=== PATIENT | male | born 1970 | race Caucasian/White ===

== ENCOUNTER 2019-07-24 10:21 | Inpatient (IN) | payer OTHER ==
[~2019-07-24] VITALS: Ht 175.3 cm; Wt 77.1 kg
[2019-07-24 10:32] VITALS: BP 118/86
[2019-07-24] MEDS ORDERED: LEXAPRO20 MG PO (10:40)
[2019-07-24] MEDS ORDERED: ABILIFY10 MG PO (10:40)
[2019-07-24 11:14] LABS: HEMATOCRIT 42.9 % (42.0-52.0); HEMOGLOBIN 14.5 gm/dL (14.0-18.0); MCH 32.1 pg (26.0-34.0); MCHC 33.7 g/dL (28.0-37.0); MCV 95.1 fL (80.0-100.0); PLATELET COUNT 231 thou/uL (150-400); RBC 4.51 mil/uL (4.50-6.00); RDW 12.9 % (10.5-14.5); WBC 13.5 thou/uL (4.0-11.0)
[2019-07-24 11:23] LABS: CALCIUM 9.9 mg/dL (8.5-10.1); POTASSIUM 3.5 mmol/L (3.5-5.1)
[2019-07-24 11:29] LABS: ALBUMIN 2.9 g/dL (3.4-5.0); TOTAL BILIRUBIN 1.2 mg/dL (<0.1-1.0); TOTAL PROTEIN 7.5 g/dL (6.4-8.2)
[2019-07-24 11:29] LABS: URINE BLOOD TRACE (Negative); URINE CLARITY CLOUDY; URINE COLOR YELLOW; URINE GLUCOSE-RANDOM* TRACE (Negative); URINE KETONES TRACE (Negative); URINE LEUKOCYTES-REFLEX NEGATIVE (Negative); URINE PROTEIN (DIPSTICK) 2+ (Negative); URINE SPECIFIC GRAVITY 1.025 (1.005-1.035)
[2019-07-24 11:38] LABS: URINE NITRITE-REFLEX POSITIVE (Negative)
[2019-07-24 11:39] LABS: ICTOTEST (BILI CONFIRMATORY) Negative (Negative); URINE BILIRUBIN NEGATIVE (Negative)
[2019-07-24 11:46] LABS: CASTS None Seen /LPF (None Seen); SQUAMOUS 0-3 Few /LPF (0-3)
[2019-07-24 11:47] LABS: AMORPHOUS URATES Many /LPF (None Seen); URINE RBC 0-2 Rare /HPF (0-2); URINE WBC-REFLEX 0-5 Rare /HPF (0-5)
[2019-07-24 12:20] LABS: ABSOLUTE NEUTROPHILS 12.4 thou/uL (1.4-8.2); PLATELET ESTIMATE NORMAL
[2019-07-24 15:14] VITALS: BP 120/77
[2019-07-24 15:26] VITALS: BP 120/77
[2019-07-24 15:47] VITALS: BP 110/75
[2019-07-24] MEDS ORDERED: TRAZODONE 150150 M1 PO (16:21)
--- NOTE | 2019-07-24 18:30 | NUR ---
PT RECEIVED FROM THE ER AT 1540 ALERT AND IN NO ACUTE DISTRESS. CONTINUES TO HAVE DIARRHEA STOOLS AND NOT PASSING FLATUS. BOWEL SOUNDS HYPERACTIVE. MORPHINE GIVEN FOR C/O RUQ PAIN WHICH HELPED BUT DOESN'T LAST PER PT. BRIEF SPELL OF NAUSEA RIGHT AFTER MORPHINE GIVEN. IV FLUIDS INFUSING. TAKING PO CLEAR LIQUIDS WELL.
[2019-07-24 19:30] VITALS: BP 131/88
[2019-07-25 04:21] LABS: ABSOLUTE NEUTROPHILS 7.7 thou/uL (1.4-8.2); BASOPHILS 0.6 % (0.0-2.0); EOSINOPHILS 0.8 % (0.0-3.0); HEMATOCRIT 40.3 % (42.0-52.0); HEMOGLOBIN 13.6 gm/dL (14.0-18.0); LYMPHOCYTES 10.9 % (24.0-44.0); MCH 32.6 pg (26.0-34.0); MCHC 33.9 g/dL (28.0-37.0); MCV 96.3 fL (80.0-100.0); MONOCYTES 10.8 % (1.0-8.0); PLATELET COUNT 229 thou/uL (150-400); POLYS 76.9 % (36.0-66.0); RBC 4.18 mil/uL (4.50-6.00); RDW 13.2 % (10.5-14.5)
[2019-07-25 04:27] VITALS: BP 150/92
[2019-07-25 04:43] LABS: ALBUMIN 2.6 g/dL (3.4-5.0); CALCIUM 8.9 mg/dL (8.5-10.1); CREATININE 0.9 mg/dL (0.7-1.3); MAGNESIUM 2.1 mg/dL (1.8-2.4); POTASSIUM 3.7 mmol/L (3.5-5.1); TOTAL BILIRUBIN 1.1 mg/dL (<0.1-1.0); TOTAL PROTEIN 6.9 g/dL (6.4-8.2)
--- NOTE | 2019-07-25 05:09 | NUR ---
PT HAVING MULTIPLE BOUTS OF DIARRHEA, WITH IT BEING BILE IN COLOR. PAIN AND FEVER MANAGEMENT POC FOR SHIFT. AT 2100 PT TEMP WAS 102.3, RECEIVED ORDERS FOR TYLENOL AND IT DROPPED IT 99.3. AT 0300 PT TEMP UP TO 103, GAVE TYLENOL AGAIN. SPOKE WITH JENNIFER CHOPRA ABOUT PT HEART RATE BEING IN 120'S. NO ORDERS RECEIVED FOR HR. HOURLY ROUNDING. POC FOLLOWED WITH IVF AND IVPB.
[2019-07-25 07:10] VITALS: BP 131/836
[2019-07-25 15:50] VITALS: BP 138/86
--- NOTE | 2019-07-25 18:25 | NUR ---
ASSUMED PATIENT CARE AT 0700. A/0 X4. TEMP 98.7 AT 1720. NO NAUSEA/VOMIT. PAIN MEDS GIVEN NEEDS. UP AD DEBORAH. SOWLY TOWARDS POC GOALS.
[2019-07-25 19:20] VITALS: BP 126/87
[2019-07-26 04:17] VITALS: BP 119/80
[2019-07-26 04:48] LABS: HEMATOCRIT 32.9 % (42.0-52.0); MCHC 33.8 g/dL (28.0-37.0); MCV 94.6 fL (80.0-100.0); RBC 3.48 mil/uL (4.50-6.00); RDW 13.2 % (10.5-14.5); WBC 11.3 thou/uL (4.0-11.0)
[2019-07-26 04:52] LABS: HEMOGLOBIN 11.1 gm/dL (14.0-18.0)
[2019-07-26 05:18] LABS: ALBUMIN 2.1 g/dL (3.4-5.0); CALCIUM 8.5 mg/dL (8.5-10.1); CREATININE 0.7 mg/dL (0.7-1.3); POTASSIUM 3.1 mmol/L (3.5-5.1); TOTAL BILIRUBIN 0.8 mg/dL (<0.1-1.0); TOTAL PROTEIN 5.7 g/dL (6.4-8.2)
--- NOTE | 2019-07-26 06:30 | NUR ---
FOLLOWING POC WITH IVF AND IVPB ANTIBIOTICS. LABS SHOW WBC ELEVATED OVER 07/25, AND K+ IS AT 3.1. PT ALREADY RECEIVING 20 MEQ IN IVF, WILL PASS THIS INFORMATION TO NEXT SHIFT. PT STILL HAVING DIARRHEA, PT STATES IT IS CLEARING. PAIN/NAUSEA CONTROL IN PLACE WITH GOOD RESULTS. PT HAS BEEN FEVER FREE WITH THE ADDED SUPPORT OF TORADOL. VSS AND PT HAS NO OTHER COMPLAINTS.
[2019-07-26 07:28] VITALS: BP 126/93
[2019-07-26 15:24] VITALS: BP 160/112
--- NOTE | 2019-07-26 15:36 | NUR ---
ASSUMED CARE OF PT AT 0700. AOX4. UP AD DEBORAH. COMPLAINS OF GENERALIZED PAIN - SOME RELIEF WITH CURRENT MED REGIMEN. HYPERTENSIVE AT TIMES. CALLS APPROPRIATELY. POTASSIUM SUPPLEMENTED PER ORDER. SR/ST ON TELEMETRY. AFEBRILE THROUGHOUT SHIFT. WILL CONT TO MONITOR.
[2019-07-26 19:30] VITALS: BP 141/98
[2019-07-27 00:20] VITALS: BP 130/98
[2019-07-27 04:20] VITALS: BP 140/99
[2019-07-27 05:00] LABS: ABSOLUTE NEUTROPHILS 9.5 thou/uL (1.4-8.2); BASOPHILS 0.2 % (0.0-2.0); EOSINOPHILS 1.4 % (0.0-3.0); HEMATOCRIT 34.7 % (42.0-52.0); HEMOGLOBIN 11.4 gm/dL (14.0-18.0); MCH 31.5 pg (26.0-34.0); MCV 95.4 fL (80.0-100.0); MONOCYTES 9.2 % (1.0-8.0); PLATELET COUNT 241 thou/uL (150-400); POLYS 78.2 % (36.0-66.0); RBC 3.64 mil/uL (4.50-6.00); RDW 13.1 % (10.5-14.5); WBC 12.1 thou/uL (4.0-11.0)
[2019-07-27 05:21] LABS: ALBUMIN 2.1 g/dL (3.4-5.0); CALCIUM 8.3 mg/dL (8.5-10.1); CREATININE 0.7 mg/dL (0.7-1.3); POTASSIUM 3.5 mmol/L (3.5-5.1); TOTAL BILIRUBIN 0.9 mg/dL (<0.1-1.0); TOTAL PROTEIN 5.9 g/dL (6.4-8.2)
[2019-07-27 07:55] VITALS: BP 144/102
--- NOTE | 2019-07-27 09:45 | NUR ---
assessment: CM REVIEWED CHART AND MET WITH PT AT THE BEDSIDE. PT WAS ADMITTED WITH DIVERTICULITIS. PT REPORTS HE LIVES IN AN APT AND HAS HIS DAUGHTER SOME OF THE TIME. PT REPORTS HAVING ABOUT 25 STEPS TO ENTER THE APT WITH HANDRAILS ON EACH SIDE. PT REPORTS NO STEPS ONCE INSIDE. PT REPORTS WALKING INDEPENDENTLY. PT REPORTS HE IS [place] WITH ADLS. PT CURRENTLY HAS NO INSURANCE. PT REPORTS HE DOES HAVE A PCP HE SEES DR. ALEXANDER HERNANDEZ HE REPORTS OUT OF [place]. CM DISCUSSED ROLE. PT DOES NOT ANTICIPATE HAVING ANY NEEDS AT DISCHARGE. CM WILL CONTINUE TO FOLLOW TO ASSIST NEEDED.
[2019-07-27 15:32] VITALS: BP 142/93
--- NOTE | 2019-07-27 18:00 | NUR ---
PT REPORTS RLQ ABD PAIN 05/26 AND MEDICATED WITH IV DILAUDID 2MG WITH COMPLETE RELIEF OBTAINED BUT PAIN RETURNS AFTER 2 HOURS...ENCOURAGED AMBULATION IN LOCK...
[2019-07-27 19:42] VITALS: BP 142/100
[2019-07-27 21:20] VITALS: BP 160/104
--- NOTE | 2019-07-27 21:46 | NUR ---
EVENT: PT HAD AN EPISODE OF SVT, ASKED HIM TO BEAR - DOWN WITH SUCCESS AFTER 10 -15 MINUTES OF ALSO HELPING HIM TO COOL DOWN HIS ENVIRONMENT AND PLACE HIM ON 3 LITERS OF OXYGEN. SPOKE WITH SUPERVISOR STOCK RANCH PROVIDER, NO NEW ORDERS RECIEVED. EXPLAINED THAT HE PROBABLY NEEDS INFECTIOUS DISEASE TO CONSULT. NO NEW ORDERS RECIEVED.
[2019-07-28 00:27] VITALS: BP 145/83
--- NOTE | 2019-07-28 03:22 | NUR ---
pt only needed the oxygen for a small amount of time (one hour) after having a high temp and taking iv dilaudid, and having the room too hot (85 degrees on register). careplan reviewed, no concerns voiced by the pt
[2019-07-28 04:20] VITALS: BP 124/85
[2019-07-28 05:12] LABS: HEMATOCRIT 32.7 % (42.0-52.0); MCHC 33.7 g/dL (28.0-37.0); RBC 3.44 mil/uL (4.50-6.00); RDW 13.2 % (10.5-14.5); WBC 16.8 thou/uL (4.0-11.0)
[2019-07-28 05:25] LABS: CALCIUM 8.8 mg/dL (8.5-10.1); CREATININE 0.7 mg/dL (0.7-1.3); MAGNESIUM 1.9 mg/dL (1.8-2.4); POTASSIUM 3.9 mmol/L (3.5-5.1)
[2019-07-28 07:54] VITALS: BP 144/97
[2019-07-28 11:47] VITALS: BP 161/108
[2019-07-28 14:38] LABS: INR 1.2; PROTIME 12.6 Seconds (9.3-11.4)
[2019-07-28 15:37] VITALS: BP 137/86
--- NOTE | 2019-07-28 15:48 | NUR ---
PATIENT WAS EAGER TO GET ANSWERS REGARDING WHAT WAS STILL HAPPENING TO HIS BELLY. ADDITIONALLY, FINDING RELIEF FROM PAIN WAS A PRIORITY GOAL FOR HIM. PT HAD A REPEAT CT SCAN AND WILL GET A LIVER DRAIN LATER. PT WAS UP AND WALKING AROUND THE HALLS MULTIPLE TIMES THROUGHOUT THE DAY.
--- NOTE | 2019-07-28 18:21 | NUR ---
ASSUMED PATIENT CARE AT 0700. A/O X3. PAIN MEDS GIVEN NEED. WILL NPO AFTER MIDNIGHT TO HAVE LIVER ABSECSS RAJI KEITH. VSS. SLOWLY TOWARDS POC GOALS.
[2019-07-28 19:31] VITALS: BP 133/94
[2019-07-29] VITALS (30 sets, daily range): BP systolic 122–168; BP diastolic 55–128
--- NOTE | 2019-07-29 02:12 | NUR ---
DURING HOURLY ROUNDS AT 0115 NOTICED PT WAS HOT AND TOOK ORAL TEMP. 102.7, ORAL TYLENOL GIVEN WITH A SMALL SIP OF WATER. REASSESSED AT 0210, ORAL TEMP 98.8. WILL CONTINUE TO MONITOR.
[2019-07-29 05:07] LABS: HEMATOCRIT 33.5 % (42.0-52.0); HEMOGLOBIN 11.1 gm/dL (14.0-18.0); MCH 31.8 pg (26.0-34.0); MCHC 33.2 g/dL (28.0-37.0); MCV 95.6 fL (80.0-100.0); RBC 3.5 mil/uL (4.50-6.00); RDW 13.2 % (10.5-14.5); WBC 16.6 thou/uL (4.0-11.0)
[2019-07-29 05:16] LABS: ALBUMIN 2.1 g/dL (3.4-5.0); CALCIUM 8.5 mg/dL (8.5-10.1); CREATININE 0.7 mg/dL (0.7-1.3); MAGNESIUM 2.1 mg/dL (1.8-2.4); PHOSPHORUS 4.8 mg/dL (2.5-4.9); POTASSIUM 4.1 mmol/L (3.5-5.1)
--- NOTE | 2019-07-29 12:08 | NUR ---
ON-GOING ASSESSMENT: CM REVIEWED CHART AND SPOKE WITH ATTENDING. PT IS TO HAVE ABSESS DRAINED AND THEN WAIT ON CULTURES TO DETERMINE PATIENTS ANBX NEEDS. PT WILL LIKELY NEED OUTPATIENT INFUSION ARRANGED BUT DOES NOT HAVE ANY INSURANCE. CM NOTIFIED CM DIRECTOR AND WILL DISCUSS WITH EXCHANGE OPERATOR TO SEE IF WE CAN PROVIDE THIS FOR PATIENT. CM WILL CONTINUE TO FOLLOW TO ASSIST NEEDED.
--- NOTE | 2019-07-29 19:08 | NUR ---
PATIENT HAD LIVER ABSCESS DRAIN BY IR BACK TO UNIT AT 1530. A/0 X4. HAS A LOT OF PAIN. BP AND HR ELEVATE. KETOROLAL 3OMG STAT GIVEN. WILL KEEP MONITOR.
[2019-07-30 04:10] VITALS: BP 130/89
--- NOTE | 2019-07-30 06:15 | NUR ---
PT WAS VERY LETHARGIC AFTER IR DRAIN OF THE ABSCESS. KEPT PT ON 2L NC UNTIL ABOUT 0100. PT WOULD DESAT IN OXYGEN TO MID 80'S. PT NOW HAS GRAVITY DRAIN LOCATED AT 5TH INTERCOSTAL ON RIGHT RIB CAGE. FLUSHED AND LAVISHED AND DRAINED ONLY 2ML AFTER FLUSH. BAG HAS ABOUT 10ML. PT RATING PAIN AT 9 AND SAYS HE IS HAVING HARD TIME BREATHING. REPOSITIONED AND LOWERED HOB TO 35 TO TAKE STRESS OF ASPIRATION SITE. VSS AND NO FEVER OVERNIGHT. FOLLOWING POC WITH IVF/IVPB. NO LABS DRAWN THIS AM TO CHECK WBC'S. WILL PASS INFORMATION TO ONCOMING.
[2019-07-30 07:30] VITALS: BP 139/86
--- NOTE | 2019-07-30 11:48 | NUR ---
Nutrition: Pt seen for early day 6 LOS. Admit: diverticulitis w/ abscess, fever, N/V. Per provider notes, pt w/ intramural abscess, hepatic masses. S/p drainage procedures. Per EMR, PICC line to be placed for shelter IV antibiotics. Pt has been limited to clear liquids, with a few days of NPO all in all for 6 days (07/24 - 07/29), but advanced to a regular diet this AM. Pt denies any issues with transition back to solid food, other than not liking hospital food. Family bringing in outside food to help increase intake. RD educated pt on goal of consuming low fiber diet given diverticulitis to allow time for healing. Discussed foods to avoid, needing to really limit fats/oils, choose enriched grains and well cooked, soft fruits/vegetables. Pt had no further nutrition questions or needs. Low nutrition risk.
--- NOTE | 2019-07-30 15:39 | NUR ---
ON-GOING ASSESSMENT: CM REVIEWED CHART. PT HAS RUQ DRAIN. PT IS ALSO RUNNING A FEVER TODAY. CM SPOKE WITH DR. FARLEY WHO STATES PATIENT WILL NEED IV ANBX AT DISCHARGE AND AWAITING CULTURES AT THIS TIME TO DETERMINE ANBX. CM NOTIFIED OUTPATIENT INFUSION ([facility]) THAT PATIENT IS PATIENT PAY AND WILL NEED OUTPATIENT INFUSION ONCE STABLE TO DISCHARGE AND ANBX IS STILL PENDING PER CULTURES. CM WILL CONTINUE TO FOLLOW TO ASSIST NEEDED.
[2019-07-30 16:24] VITALS: BP 144/96
[2019-07-30 17:38] LABS: HEMOGLOBIN 11.3 gm/dL (14.0-18.0)
--- NOTE | 2019-07-30 18:36 | NUR ---
ASSUMED PATIENT CARE AT 0700. A/O X4. AMBULATED IN HALLWAY. NO DRAIN COME OUT FROM LIVER ABSCESS. ABD DISDENTED. PAIN MEDS GIVEN NEEDS. LOW GRADE TEMP. NOT TOWARDS POC GOALS.
[2019-07-30 19:14] VITALS: BP 182/104
[2019-07-30 20:15] VITALS: BP 140/72
[2019-07-31 00:13] VITALS: BP 109/71
[2019-07-31 03:47] VITALS: BP 106/70
--- NOTE | 2019-07-31 04:18 | NUR ---
Patient making slow progress towards outcome goals. Tachycardic up to 150's when up out of bed and when febrile. Continues to have significant amount of abdominal pain treated with Hydromorphone and Percocet with some relief. IVFluids infusing. Drain patent, output sanguinous, flushed with 10 ml NS every 8 hours.
[2019-07-31 07:08] VITALS: BP 150/112
[2019-07-31 07:14] LABS: HEMATOCRIT 32.9 % (42.0-52.0); HEMOGLOBIN 10.7 gm/dL (14.0-18.0); MCH 31.2 pg (26.0-34.0); MCHC 32.4 g/dL (28.0-37.0); MCV 96.2 fL (80.0-100.0); RBC 3.42 mil/uL (4.50-6.00); RDW 13.4 % (10.5-14.5); WBC 17.7 thou/uL (4.0-11.0)
[2019-07-31 07:26] LABS: ALBUMIN 2.1 g/dL (3.4-5.0); CALCIUM 8.7 mg/dL (8.5-10.1); CREATININE 0.7 mg/dL (0.7-1.3); PHOSPHORUS 3.4 mg/dL (2.5-4.9); POTASSIUM 4.4 mmol/L (3.5-5.1)
[2019-07-31 08:14] VITALS: BP 147/109
--- NOTE | 2019-07-31 11:49 | NUR ---
ON-GOING ASSESSMENT: CM REVIEWED CHART AND SPOKE WITH ATTENDING. PT STATING PATIENT IS NOT DISCHARGING OVER THE WEEKEND AND HAS HAD A FEVER AND ELEVATED WBC. PT MAY NEED ANOTHER DRAIN PLACED. CM WILL FOLLOW UP ON SATURDAY CULTURES ARE STILL PENDING AND PER ID PT WILL NEED OUTPATIENT INFUSION ARRANGED, ANBX IS STILL PENDING DUE TO CULTURES PENDING. CM UPDATED OUTPT INFUSION. CM WILL FOLLOW UP ON SATURDAY.
[2019-07-31 15:24] VITALS: BP 141/95
--- NOTE | 2019-07-31 19:39 | NUR ---
PT ALERT AND ORIENTED X4. UP AD DEBORAH. AMBULATING IN HALLWAY WITH STEADY GAIT. PRN PAIN MEDICATION GIVEN FOR RUQ ABD PAIN. USING I.S. UP TO 1500ML. PT REPORTS HAVING FREQUENT SMALL BM'S.
[2019-07-31 20:10] VITALS: BP 137/92
[2019-08-01 03:55] VITALS: BP 120/76
--- NOTE | 2019-08-01 07:27 | NUR ---
ASSUMED CARE AT 1900. PT REPORTED SKIN DISCOMFORT AT DRAIN SITE; BLISTERS NOTED AROUND THE DRESSING BORDER; PLACED A BORDER FOAM ON LEFT UPPER CORNER AND GAUZE UNDERNEATH THE DRAIN AND STOPCOCK TO PREVENT IRRIATION. VERY LITTLE FLUID OUT THE DRAIN OVERNIGHT. NO NAUSEA; HAD A SMALL FORMED BM IN THE EVENING. DENIED SOB. HR FREQ TACHY 130-150; ANYTIME PT WAS UP MOVING AROUND HIS HR BECAME TACHY, PT STATED IT WAS D/T PAIN. DID NOT HAVE ANY FEVER, AND HR WOULD GO DOWN AFTER RESTING BRIEFLY. HAD PAIN MEDS EVERY 2-3 HOURS, ALTERNATING BEWTEEN ORAL AND IV. NO OTHER CONCERNS, SHIFT REPORT GIVEN AT 0700.
[2019-08-01 07:29] VITALS: BP 129/94
[2019-08-01 15:45] VITALS: BP 150/86
--- NOTE | 2019-08-01 16:30 | NUR ---
Assumed care approx. 0700 this AM. No acute changes. Still working on pain management-pt rating pain in the 8 to 9 range on a 1-10 pain scale. Pt placed on 2LNC this AM for O2 sat of 87%, now back on room air. Drainage bag and tubing intact-10ml NS flushed Q8H; drainage remains sanguineous in color. Pt still up ad talib and walking around the unit to get exercise. Pt seen with Dr. Lizarraga-Possible CT scan Saturday to compare results per Dr. angelo. Will continue to monitor. Pt slowly progressing toward plan of care goals besides pain management at this time.
[2019-08-01 19:47] VITALS: BP 146/96
[2019-08-02 04:46] VITALS: BP 143/70
[2019-08-02 05:28] LABS: ABSOLUTE NEUTROPHILS 12.7 thou/uL (1.4-8.2); BASOPHILS 0.6 % (0.0-2.0); EOSINOPHILS 0.7 % (0.0-3.0); HEMATOCRIT 32.3 % (42.0-52.0); HEMOGLOBIN 10.6 gm/dL (14.0-18.0); LYMPHOCYTES 7.1 % (24.0-44.0); MCH 31.3 pg (26.0-34.0); MCHC 32.8 g/dL (28.0-37.0); MCV 95.3 fL (80.0-100.0); MONOCYTES 4.4 % (1.0-8.0); POLYS 87.2 % (36.0-66.0); RBC 3.39 mil/uL (4.50-6.00); RDW 13.7 % (10.5-14.5); WBC 14.5 thou/uL (4.0-11.0)
--- NOTE | 2019-08-02 05:38 | NUR ---
ASSUMED CARE AT 1900. PT DENIES NAUSEA. REPORTS IT IS PAINFUL TO TAKE DEEP BREATHS D/T DRAIN; O2 SAT AT START OF SHIFT WAS 89%, WITH DEEPER BREATHING [place] TO 94%. HAD PT WEAR 2L O2 NC WHEN HE WAS READY TO GO TO BED TO PREVENT DESATTING WHILE ASLEEP. CONTINUES TO RATE UPPER R QUAD/DRAIN SITE PAIN ABOUT AN 8/10 AND GENERALIZED ABD PAIN ABOUT A 6/10. FLUSHED DRAIN AT START OF SHIFT, HAD 40 ML THIN, SANGINOUS DRAINAGE OUT; FLUSHED DRAIN AGAIN THIS AM. HR STAYED IN THE 100-110 RANGE OVERNIGHT. NO OTHER CONCERNS, WILL CONTINUE TO MONITOR.
[2019-08-02 05:43] LABS: PLATELET COUNT 501 thou/uL (150-400)
[2019-08-02 07:42] VITALS: BP 157/100
[2019-08-02 15:43] VITALS: BP 142/98
--- NOTE | 2019-08-02 18:14 | NUR ---
ASSUMED PATIENT CARE AT 0700. A/O X4. UP AD DEBORAH. AFEBRILE. ONLY 5ML FROM RUQ DRAIN. PROGRESSING TOWARDS POC GOALS.
[2019-08-02 19:45] VITALS: BP 181/110
[2019-08-02 21:36] VITALS: BP 132/75
--- NOTE | 2019-08-02 22:46 | NUR ---
1999 patient's temp was 100.3. Tylenol administered 2039. Temp 98.9 at 2229.
[2019-08-02 23:41] VITALS: BP 131/77
[2019-08-03 04:05] VITALS: BP 132/82
[2019-08-03 07:41] VITALS: BP 126/89
--- NOTE | 2019-08-03 12:54 | NUR ---
ON-GOING ASSESSMENT: PT IS SLOWLY PROGRESSING TOWARDS DISCHARGE GOALS. PT IS AFEBRILE. PT IS HAVING REPEAT CT AND PER FINDINGS DRAIN WILL EITHER BE REMOVED OR REPLACED. CM WLL CONTINUE TO FOLLOW TO ASSIST NEEDED. CM AWAITING ON FINAL RECOMMENDATIONS FOR ANTIBIOTICS THAT PATIENT WILL NEED. CM WILL CONTINUE TO FOLLOW TO ASSIST NEEDED.
[2019-08-03 16:02] VITALS: BP 138/99
--- NOTE | 2019-08-03 17:57 | NUR ---
ASSUMED CARE OF PATIENT AT 0700. VSS. ROOM AIR. PATIENT REQUIRES ROUND THE CLOCK PAIN MEDICATION. LIVER DRAIN WITH MINIMAL TO NO OUTPUT WITH Q8 10ML FLUSHES. CONTINUING TO MONITOR.
[2019-08-03 20:39] VITALS: BP 133/94
[2019-08-04 03:54] VITALS: BP 114/72
--- NOTE | 2019-08-04 04:33 | NUR ---
ASUMED PT CARE AT 1900. VSS. PT A&0X4. PT'S MAIN COMPLAINTS TONIGHT WAS PAIN WHICH HE RATED BETWEEN 8-9. PAIN WAS MANAGED WTH HYDROMORPHONE AND OXYCODONE RESPECTIVELY. PT SLEPT THROUGH THE NIGHT. SILL NO SIGNIFICANT DRAINAGE NOTED IN PT'S DRAIN. 10ML FLUSH TO DRAIN COMPLETED THIS SHIFT. PT IS STABLE, NO FURTHER COMPLAINTS WILL CONTINUE TO MONITOR PER POC.
[2019-08-04 07:39] VITALS: BP 131/95
--- NOTE | 2019-08-04 13:33 | NUR ---
ON-GOING ASSESSMENT: CM REVIEWED CHART AND MET WITH PATIENT AT THE BEDSIDE. PT STILL HAS RIGHT UPPER QUADRANT DRAIN. REPEAT CT SHOWS SLIGHT IMPROVEMENT OF ABSESS. CM SPOKE WITH ATTENDING WHO REPORTS IR MAY WANT TO DRAIN MORE. CM STILL AWAITING TO SEE WHAT OUTPATIENT IV ANBX PATIENT WILL NEED AT DISCHARGE IN ATTEMPTS TO HELP ARRANGE IT FOR PT IN OUR OUTPT INFUSION CLINIC SINCE PATIENT DOES NOT HAVE INSURANCE. CM WILL CONTINUE TO FOLLOW TO ASSIST NEEDED.
[2019-08-04 18:40] LABS: HEMATOCRIT 32.7 % (42.0-52.0); HEMOGLOBIN 10.9 gm/dL (14.0-18.0); MCHC 33.3 g/dL (28.0-37.0); MCV 93.1 fL (80.0-100.0); RBC 3.51 mil/uL (4.50-6.00); WBC 19.7 thou/uL (4.0-11.0)
--- NOTE | 2019-08-04 18:43 | NUR ---
PT ALERT AND ORIENTED TIMES FOUR, VSS, 93%RA. PT C/O PAIN SEVERAL TIMES THIS SHIFT PRN MEDICATIONS GIVEN WITH SOME RELEIF. PT EATS VERY SMALL PORTIONS OF MEALS. PT UP WALKING AROUND THE UNIT WITH STEADY GAIT. DRAIN IN RIGHT SIDE IN PLACE. WILL CONTINUE TO MONITOR.
[2019-08-04 18:49] LABS: CALCIUM 9.4 mg/dL (8.5-10.1); CREATININE 0.9 mg/dL (0.7-1.3); MAGNESIUM 2.2 mg/dL (1.8-2.4); POTASSIUM 3.7 mmol/L (3.5-5.1)
[2019-08-04 19:18] VITALS: BP 110/77
[2019-08-05 03:59] VITALS: BP 107/66
--- NOTE | 2019-08-05 04:58 | NUR ---
PT MAKING PROGRESS TOWARDS GOALS. X2 DOSES OF DILAUDID AND ONE DOSE OF PERCOCET OVERNIGHT FOR ABDOMINAL PAIN. PT GIVEN EXTRA GOWN, REPORTS WAKING UP ONCE AND FEELING LIKE HAD BEEN SWEATING A LITTLE A FEW HOURS AFTER GIVEN PERCOCET.
[2019-08-05 07:34] VITALS: BP 122/75
--- NOTE | 2019-08-05 08:20 | EKG ---
[address] [address] ELECTROCARDIOGRAM REPORT Name: NINOBRIAN Room #: 353-P ADM IN M.R.#: [id number] Admission: 07/24/19 Attend Phys: Sami Merchant MD Discharge: Date of : 70 Report #: [id number] THIS REPORT FOR: //name// [facility] Test Date: 2019-08-04 Test Time: 19:07:44 Pat Name: BRIAN ONEILL Department: Room: 353 P Gender: M Phone Circuit Operator: Cee REILLY : 1970 Requested By: Xochitl Hunt Order Number: [id number] MD: Palmer Gaviria Measurements Intervals [place] Rate: 120 P: 51 AR: 125 QRS: 49 QRSD: 80 T: 21 QT: 341 QTc: 482 Interpretive Statements Sinus tachycardia Baseline wander in lead(s) V2 No previous ECG available for comparison Electronically Signed On 08-05-2019 8:19:58 GRADE CHECKER by Palmer Gaviria [email or web address] <ELECTRONICALLY SIGNED> By: Palmer Gaviria MD 08/05/19818 06 06 Palmer Gaviria MD /TOMASZ
[2019-08-05 08:52] LABS: HEMATOCRIT 30.5 % (42.0-52.0); MCHC 32.7 g/dL (28.0-37.0); MCV 94.8 fL (80.0-100.0); PLATELET COUNT 431 thou/uL (150-400); RBC 3.21 mil/uL (4.50-6.00); WBC 13.9 thou/uL (4.0-11.0)
[2019-08-05 09:50] LABS: PLATELET ESTIMATE NORMAL
--- NOTE | 2019-08-05 11:45 | NUR ---
ON-GOING ASSESSMENT: CM REVIEWED CHART AND SPOKE WITH ATTENDING WHO IS REQUESTING WE TRANSFER PATIENT [place] [facility] [place]IGHER LEVEL OF GI SERVICES AND SURGERY. CM CONTACTED THE [facility] TRANSFER LINE [phone] TO INITIATE TRANSFER. CM FAXED CLINICAL TO THEIR FAX [phone] AND AWAITING TO SEE IF THEY WILL ACCEPT PATIENT. BELTRAN PROVIDED DR. VILLANUEVA CONTACT INFORMATION WITH ANY QUESTIONS WELL NURSES STATION NUMBER. CM WAITING TO HEAR BACK FROM [facility].
[2019-08-05 15:51] VITALS: BP 113/71
--- NOTE | 2019-08-05 17:26 | NUR ---
ASSUMED CARE OF PATIENT AT 0700. VSS. RA. IV ANTIBIOTICS. ASKS FOR PAIN/ANXIETY MEDICATIONS AROUND THE CLOCK FOR ABD PAIN NEAR DRAIN. PHYSICIAN HAS RECOMMENDED TRANSFER TO ANOTHER HOSPITAL - WAITING FOR RESPONSE FROM CASE MANAGEMENT IF [facility] WILL ACCEPT PATIENT. GIRLFRIEND REQUESTS TO STAY INFORMED - WANTS CALL DAILY FROM PHYSICIAN, WANTED CALL TODAY FROM CASE MANAGEMENT. PHYSICIAN AND CASE MANAGEMENT INFORMED OF THIS.
[2019-08-05 20:24] VITALS: BP 122/75
[2019-08-05 22:43] VITALS: BP 124/86
--- NOTE | 2019-08-05 22:45 | NUR ---
PATIENT ASSESSED AND IS ALERT X 4. SKIN WARM AND DRY. RESP EVEN AND UNLABORED. COMPLAINING OF PAIN IN ABDOMEN. UP AD DEBORAH TO BATHROOM ABND HALLWAY. GIRLFRIEND CALLED AND GAVE ALL INFO ON TRASFER TO 4S. AND DISCUSS ABOUT POSSIBLE TRANSFER TO [facility] IN AM. DR FARLEY IN TO SEE PATIENT AND WANTED AN ORDER FOR A PICC LINE. ABDOMEN SOFT AND 4+BS. CONT PLAN OF CARE. REPORT GIVEN TO 4S ON PATIENT. TUBE FLUSHED ORDERED. IV SL IN RIGHT AC INFILTRATED. NEW #20 STARTED IN RIGHT WRIST. FLUSHES WELL. CONT PLAN [place] [id number].
[2019-08-05 23:58] VITALS: BP 124/86
--- NOTE | 2019-08-06 01:21 | NUR ---
Pt transferred from 3 @ 7265. A/OX4,VSS.Up ad talib in room encouraged to call for help as needed and verbalizes understaing. Has a hepatic drain on RUQ with scant drainage in the bag. C/o pain 02/23, medicated per EMAR with relief reported. Resting quietly with call light/personal items within reach.
--- NOTE | 2019-08-06 02:22 | NUR ---
CONTINUE CARE OF PT @2315 PT ASLEEP ON ASSESSMENT. IV INTACT ABX GIVEN. CALL LIGHT WITHIN REACH WILL CONT WITH POC TILL EOS.
[2019-08-06 04:53] VITALS: BP 128/97
[2019-08-06 07:10] VITALS: BP 133/90
--- NOTE | 2019-08-06 08:14 | NUR ---
ON-GOING ASSESSMENT: [facility] REACHED OUT AGAIN TO [facility] TRANSFER LINE [phone] TO CHECK STATUS OF TRANSFER. THEY REPORT THAT [facility] [place] DID NOT HAVE A BED AVAILABLE YESTERDAY AND THAT THEY ARE FOLLOWING UP WITH THEM THIS AM AFTER THEIR BED MEETING. [facility]TRAN SPOKE WITH PATIENTS GIRLFRIEND MICHELLE TO UPDATE. SHE IS REALLY WANTING PATIENT TO BE TRANSFERED TODAY. [facility]TRAN DISCUSSED THAT CM WILL FOLLOW UP WITH [facility] TRANFER TEAM AFTER BED MEETING. SHE STATES IF [facility] CANNOT ACCEPT TODAY SHE WOULD BE INTERESTED IN [facility] IF THAT IS AN OPTION. [facility] WILL CONTINUE TO FOLLOW.
[2019-08-06 15:50] VITALS: BP 120/82
[2019-08-06 19:40] VITALS: BP 126/82
--- NOTE | 2019-08-07 03:35 | NUR ---
ASSUMED CARE OF PT @1900 PT ASSESSED AT START OF SHIFT. WITH C/O PAIN IN ABD OF A 9. PAIN MEDS GIVEN. HEPATIC DRAIN PRESENT IN RUQ WITH SCANT DRAINAGE FLUSHED WITH 10CC. ABX INFUSING. PT UP AD DEBORAH AND CALL LIGHT WITHIN REACH. GF CALLED WANTING TO KNOW ABOUT RESULT FOR PLACEMENT. WILL CONT WITH POC TILL EOS.
[2019-08-07 07:20] VITALS: BP 119/76
--- NOTE | 2019-08-07 11:25 | NUR ---
ASSUMED CARE OF THE PT AT 0700. PT IS AMBULATORY AND IS NOT A FALL RISK. PTS DRAIN WAS REMOVED BY THE DOCTOR. PAIN IS BEING CONTROLLED BY PAIN MEDICATION, SEE EAM[facility]. PT IS AWAITING DISCHARGE INSTRUCTIONS ON WHERE HE WILL BE TRANSFERRED TO. CALL LIGHT IS WITHIN REACH AND BED IS IN THE LOWEST POSITION. PTS LUNGS ARE CLEAR. PULSES ARE STRONG AND PT TEMP IS 98.4. PT REFUSED FLU VACCINATION. WILL CONTINUE TO MONITOR THE PT.
--- NOTE | 2019-08-07 11:45 | NUR ---
Followup: admit with perforated diverticulitis with abscess, resolved sepsis, and with hepatic drain for liver abscesses. Diet now regular diet, pt reports eating better and ordering from alternative menu as well as having food brought in. Intakes~50-100%. No new wt to assess. Awaiting possible transfer to another facility. Low nutrition risk
--- NOTE | 2019-08-07 12:49 | NUR ---
NURSE MARIAM HAD GOTTEN VM FROM [facility] [place] WITH [facility] ASKING IF A BED WAS STILL NEEDED AND REQUESTING UPDATED CLINICAL IF SO. BELTRAN CALLED ANA AT [facility] AND INDICATED THAT YES A BED WAS STILL NEEDED. UPDATED CLINICAL FAXED. [facility]TRAN CALLED PT'S GIRLFRIEND AND INDICATED THE ABOVE. SHE ASKED IF WE HAD HEARD ANYTHING FROM ANY OTHER HOSPITALS CM INDICATED THAT OF PC CM HADN'T. [facility]TRAN CALLED [facility] AT 12:48 AND THE [facility] DIRECTOR [facility] [place] WILL CALL [facility] BACK WELL. CM TO FOLLOW INDICATED WITH [facility] TRANSFER.
--- NOTE | 2019-08-07 13:49 | NUR ---
FAXED CLINICAL UPDATE TO [facility] RECEIVED CONFIRMATION AND SPOKE WITH INTAKE THAT INFO TO GO TO [facility]. YANEZ TO FOLLOW.
--- NOTE | 2019-08-07 14:56 | NUR ---
DR. SELF REMOVED DRAIN TODAY. DR FARLEY INDICATED THAT HE IS ABLE TO MANAGE PT'S CONTINUED HERE. CM CALLED PT'S GF AND NOTIFIED HER. DR. FARLEY INDICATED THAT PT WILL NEED OP INFUSION UPON POSSIBLE DC SATURDAY. CM CONTACTED [facility] D IN [facility] AND FAXED FACESHEET, H&P, AND MIGUELITO'S PROG NOTE WITH PLAN. CM TO FOLLOW INDICATED WITH DC PLANNING.
[2019-08-07 20:05] VITALS: BP 123/81
--- NOTE | 2019-08-08 01:54 | NUR ---
ASSUMED PT CARE ON 08/07/19 APPORX 1915. PT IS UP AD DEBORAH AND WALKING AROUND WITH IV POLE. PT IS ALERT AND ORIENTED X4. PT STATES THAT HE IS IN THE MOST PAIN WHEN HE DEEP BREATHES. CHARGE NURSE REPLACED IV, NEW LOCATION IS IN THE LEFT WRIST (AFTER I ATTEMPTED TWICE). I ADMINISTERED PAIN MEDICATION ALONG WITH HIS SCHEDULED MED. I HUNG THE ANTIBIOTIC. WILL CONTINUE TO MONITOR.
[2019-08-08 04:40] VITALS: BP 115/82
[2019-08-08 05:09] LABS: ABSOLUTE NEUTROPHILS 5.2 thou/uL (1.4-8.2); EOSINOPHILS 1.6 % (0.0-3.0); HEMATOCRIT 31.2 % (42.0-52.0); HEMOGLOBIN 10.3 gm/dL (14.0-18.0); LYMPHOCYTES 23.3 % (24.0-44.0); MCH 30.9 pg (26.0-34.0); MCHC 33.1 g/dL (28.0-37.0); MCV 93.3 fL (80.0-100.0); MONOCYTES 8.8 % (1.0-8.0); PLATELET COUNT 451 thou/uL (150-400); POLYS 65.3 % (36.0-66.0); RBC 3.34 mil/uL (4.50-6.00); RDW 14.3 % (10.5-14.5); WBC 7.9 thou/uL (4.0-11.0)
[2019-08-08 05:31] LABS: ALBUMIN 2.5 g/dL (3.4-5.0); CALCIUM 8.9 mg/dL (8.5-10.1); CREATININE 0.8 mg/dL (0.7-1.3); TOTAL BILIRUBIN 0.6 mg/dL (<0.1-1.0); TOTAL PROTEIN 6.9 g/dL (6.4-8.2)
--- NOTE | 2019-08-08 06:18 | NUR ---
THIS NURSE AGREES WITH THE NOTE ON THE PATIENT IN RM 434.
[2019-08-08 08:31] VITALS: BP 116/77
[2019-08-08 17:16] VITALS: BP 108/75
--- NOTE | 2019-08-08 18:27 | NUR ---
VAT CONSULTED FOR A PICC FOR HOME ABX. 4FRSLIPICC PLACED LUABRACHIAL AND RELEASED FOR USE . PLEASE SEE NI FOR DETAILS
[2019-08-08 20:00] VITALS: BP 121/83
--- NOTE | 2019-08-08 20:57 | NUR ---
PATIENT IS ALERT AND ORIENTED BUT STILL EXPERIENCING ABDOMINAL PAIN WHICH IS MANAGED BY ORAL AND IV PAIN MEDS. PATIENT IS EATING REGULAR DIET AND OCCASSIONALLY COMES TO NURSE STATION WITH REQUESTS. SIGNIFICANT OTHER IS AT BEDSIDE THIS AFTERNOON. PICC LINE WAS PLACED LATE THIS AFTERNOON AND IV ANTIBIOTICS AT HOME. PATIENT IS ANTICIPATING DISCHARGE AFTER RESULTS OF CT SCAN PERHAPS ON SATURDAY.
--- NOTE | 2019-08-09 01:56 | NUR ---
ASSUMED CARE OF PT @1900 PT ASSESED AT START OF SHIFT. A&OX4. PICC LINE INTACT IN LFT UA ABX. C/O OF MILD PAIN IN ABX PAIN MED GIVEX1 THIS SHIFT. PT UP AD DEBORAH AND CALLS TO LET NEEDS KNOWN. DRESSING INTACT IN RUQ POST HEPATIC DRAIN D/C. CALL LIGHT WITHIN REACH WILL CONT WITH POC TILL EOS.
[2019-08-09 04:13] VITALS: BP 117/82
[2019-08-09 05:06] LABS: EOSINOPHILS 1.5 % (0.0-3.0); HEMATOCRIT 33.1 % (42.0-52.0); LYMPHOCYTES 28.8 % (24.0-44.0); MCH 31.1 pg (26.0-34.0); MCHC 33.1 g/dL (28.0-37.0); MCV 93.8 fL (80.0-100.0); MONOCYTES 7.7 % (1.0-8.0); PLATELET COUNT 445 thou/uL (150-400); RBC 3.53 mil/uL (4.50-6.00); RDW 13.9 % (10.5-14.5); WBC 8.2 thou/uL (4.0-11.0)
[2019-08-09 05:08] LABS: CALCIUM 9.5 mg/dL (8.5-10.1); CREATININE 0.8 mg/dL (0.7-1.3); MAGNESIUM 2.4 mg/dL (1.8-2.4); PHOSPHORUS 4.9 mg/dL (2.5-4.9); POTASSIUM 4.1 mmol/L (3.5-5.1)
[2019-08-09 07:40] VITALS: BP 108/79
--- NOTE | 2019-08-09 16:00 | NUR ---
A&O, calm and pleasant; complains of pain in abdomen, pain medication given and worked; no n/v. vss, lab reviewed. Patient in bed with eyes closed, chest up and down.will keep monitoring.
[2019-08-09 16:10] VITALS: BP 123/85
[2019-08-09 19:54] VITALS: BP 114/79
--- NOTE | 2019-08-10 01:23 | NUR ---
ASSUMED CARE OF PT @1900 PT ASSESSED AT START OF SHIFT A&OX4 WITH C/O OF PAIN IN ABD PAIN MEDS GIVEN SEE EMAR. PICC LINE INTACT IN LFT UPPER ARM AND ABX INFUSING. PT UP AD DEBORAH. NPO AFTER MIDNIGHT FOR SCAN PT INFORMED AND HE STATED HE KNOWS THE PROCESS. AT MIDNIGHT ARRIVED AT PT ROOM TO MOVE FLUIDS AND SET ASIDE. THE SIGN SHOP SUPERVISOR TOLD THIS NURSE SHE WENT IN TO ALSO MOVE PT CUP. THIS NURSE WENT BACK 3OMINS AND FOUND CUP BY BEDSIDE. PT STATED HE KNOWS AND WILL ONLY DRINK THE ICE FROM IT. INFORMED PT THAT THIS WAS PROTOCOL AND HE IS NOT TO HAVE ANY FLUIDS IN DUE TO HIS SCAN, TO MONITOR HIS INTAKE AND PER DOCTOR ORDERS. THIS NURSE CARRIED PT CUP AND EMPTIED OUT THE FLUID FROM CUP PT STATED HE FELT THAT WE WERE BEING "CONTROLLING" REDUCATED HIM AGAIN IN ORDER FOR HIS SCANS TO BE CLEAR AND THEN PT STATED HE UNDERSTANDS. CALL LIGHT WITHIN REACH AND WILL CONT WITH POC TILL EOS.
[2019-08-10 03:41] VITALS: BP 109/69
[2019-08-10 03:46] LABS: ABSOLUTE NEUTROPHILS 5.3 thou/uL (1.4-8.2); ALBUMIN 2.6 g/dL (3.4-5.0); BASOPHILS 1.4 % (0.0-2.0); CALCIUM 9.1 mg/dL (8.5-10.1); CREATININE 0.8 mg/dL (0.7-1.3); EOSINOPHILS 1.6 % (0.0-3.0); HEMATOCRIT 32.9 % (42.0-52.0); LYMPHOCYTES 24.9 % (24.0-44.0); MCH 30.9 pg (26.0-34.0); MCHC 33.3 g/dL (28.0-37.0); MCV 92.9 fL (80.0-100.0); MONOCYTES 7.8 % (1.0-8.0); PLATELET COUNT 432 thou/uL (150-400); POLYS 64.3 % (36.0-66.0); POTASSIUM 4.1 mmol/L (3.5-5.1); RBC 3.54 mil/uL (4.50-6.00); RDW 13.8 % (10.5-14.5); TOTAL BILIRUBIN 0.5 mg/dL (<0.1-1.0); TOTAL PROTEIN 6.9 g/dL (6.4-8.2); WBC 8.3 thou/uL (4.0-11.0)
[2019-08-10 08:57] VITALS: BP 132/88
--- NOTE | 2019-08-10 09:09 | 2DMMODE ---
[facility] [place] [address] 2 D/M-MODE ECHOCARDIOGRAM Name: BRIAN ONEILL Room #: 434-P ADM IN .R.#: [id number] Admission: 07/24/19 Attend Phys: Sami Merchant MD Discharge: Date of : 70 Report #: [id number] THIS REPORT FOR: //name// APPROVED REPORT Study performed: 08/10/2019 07:48:13 EXAM: Comprehensive 2D, Doppler, and color-flow Echocardiogram Patient Location: Echo lab Status: routine BSA: 1.93 HR: 84 bpm BP: 109/69 mmHg Rhythm: NSR Other Information Study Quality: Adequate Technically limited study due to lung artifact. Indications Fever, ASD evaluation. Echo Enhancing Agent Indication: Rule out Shunt Agent(s) / Amount(s) Used: Agitated Saline 9 cc 2D Dimensions RVDd: 42.54 mm IVSd: 10.98 (7-11mm) LVOT Diam: 19.72 (18-24mm) LVDd: 47.71 mm PWd: 6.92 (7-11mm) Ascending Ao: 31.93 (22-36mm) LVDs: 31.39 (25-40mm) Aortic Root: 31.59 mm IVC: 11.00 mm Volumes Left Atrial Volume (Systole) Single Plane 4CH: 23.01 mL Single Plane 2CH: 31.37 mL LA ESV Index: 16.00 mL/m2 Aortic Valve AoV Peak Mazin.: 1.06 m/s AO Peak Gr.: 4.46 mmHg LVOT Max P.93 mmHg LVOT Max V: 0.86 m/s GERONIMO Vmax: 2.48 cm2 [facility] [address] [place] [address] 2 D/M-MODE ECHOCARDIOGRAM Name: NINOBRIAN Room #: 434-[facility] [place] [facility].#: [id number] Admission: 07/24/19 Attend Phys: Sami Merchant MD Discharge: Date of : 70 Report #: [id number] Mitral Valve E/A Ratio: 0.9 MV Decel. Time: 166.49 ms MV E Max Mazin.: 0.60 m/s MV A Mazin.: 0.69 m/s MV PHT: 48.28 ms IVRT: 93.43 ms Pulmonary Valve PV Peak Mazin.: 1.09 m/s PV Peak Gr.: 4.74 mmHg Pulmonary Vein P Vein S: 0.52 m/s P Vein A: 0.34 m/s P Vein D: 0.47 m/s P Vein A Dur.: 69.2 msec P Vein S/D Ratio: 1.11 Tricuspid Valve TR Peak Mazin.: 1.58 m/s RAP Estimate: 10.00 mmHg TR Peak Gr.: 9.94 mmHg PA Pressure: 20.00 mmHg Left Ventricle The left ventricle is normal size. There is normal LV segmental wall motion. There is normal left ventricular wall thickness. The left ventricular systolic function is normal. LVEF is 55-60%. Mild diastolic dysfunction is present (impaired relaxation pattern). Right Ventricle The right ventricle is normal size. The right ventricular systolic function appears normal. Atria The left atrium size is normal. Small amount of right to left shunting consistent with a PFO The right atrium size is normal. Aortic Valve The aortic valve is normal in structure. No aortic regurgitation is present. There is no aortic valvular stenosis. Mitral Valve The mitral valve is normal in structure. Mild mitral regurgitation. No evidence of mitral valve stenosis. [facility] [address] [place] [address] 2 D/M-MODE ECHOCARDIOGRAM Name: BRIAN ONEILL Room #: 434-P [facility] IN .R.#: [id number] Admission: 07/24/19 Attend Phys: Sami Merchant MD Discharge: Date of : 70 Report #: [id number] Tricuspid Valve The tricuspid valve is normal in structure. Trace tricuspid regurgitation. Pulmonary artery systolic pressure could not be reliably ascertained Pulmonic Valve The pulmonary valve is normal in structure. Mild pulmonic regurgitation. Great Vessels The aortic root is normal in size. The ascending aorta is normal in size. IVC is normal in size and collapses <50% with inspiration. Pericardium There is no pericardial effusion. <Conclusion> The left ventricular systolic function is normal. There is normal LV segmental wall motion. LVEF is 55-60%. Mild diastolic dysfunction Small amount of right to left shunting consistent with a PFO The aortic valve is normal in structure. No aortic regurgitation or stenosis The mitral valve is normal in structure. Mild mitral regurgitation. Trace tricuspid regurgitation. Pulmonary artery systolic pressure could not be reliably ascertained There is no pericardial effusion. <ELECTRONICALLY SIGNED> By: Yg Sauceda MD, [facility] 08/10/19907 7 7 Yg Sauceda MD, FACC /INF
--- NOTE | 2019-08-10 10:19 | NUR ---
PT CARE ASSUMED 0700. A&Ox4. PT UB AT [facility]. PT REFUSES COMPRESSION DEVICES. PICC LINE IN L. UPPER ARM. FLUSHES WELL. SALINE LOCKED WITH ANTIBIOTIC RUNNING. US AND ECHO COMPLEETED. WAITING ON RESULTS AND IF HE IS DISCHARGING. PAIN MANAGED WITH GOOD RESULTS.
[2019-08-10 15:57] VITALS: BP 121/87
--- NOTE | 2019-08-10 16:05 | NUR ---
CARE TEAM INDICATED THAT PT IS LIKELY MEDICALLY STABLE TO DISCHARGE HOME THIS DAY. REFERRAL HAD BEEN SENT TO OP INFUSION CLINIC SATURDAY INDICATED THAT [facility] WOULD NEED TO BE ARRANGED. [facility] IS INDICATING THAT PT IS TO HAVE ceftriaxone 1gm iv q day with metronidazole po. [facility] IS TO FOLLOW PT IN THE OP INF[facility]ION CLINIC. FINAL ORD[place] [place] [id number]. THEY WILL NEED TO CONTACT PT TOMORROW TO INDICATE WHAT TIME TO COME TOMORROW.
[2019-08-10] MEDS ORDERED: PERCOCET PO (17:06)
[2019-08-10 17:45] VITALS: BP 121/87
[2019-08-11] MEDS ORDERED: METRONIDAZOLE500 M4 PO (00:02)
[2019-08-11] MEDS ORDERED: ROCEPHIN 11 GM/1001 IV (15:49)
== END 2019-08-10 18:32 | disposition home or self-care (01) | DRG 871 ==
LOC: ER 10:21 → EROBS 14:10 → 3W 14:10 → 4S 08-05 23:29 → ENTRNSPT 08-10 18:07 → 4S 08-10 18:32
PROVIDERS: Emergency Medicine; Hospitalist; Internal Medicine; Nurse Practitioner Family; Specialist; Surgery; ADMIT Internal Medicine
PROC: 0F9130Z Drainage of Right Lobe Liver with Drainage Device, Percutaneous Approach (ICD-10-PCS; principal; 2019-07-29)
PROC: 02HV33Z Insertion of Infusion Device into Superior Vena Cava, Percutaneous Approach (ICD-10-PCS; 2019-08-08)
DX: A41.9 Sepsis, unspecified organism (principal); K75.0 Abscess of liver; K57.80 Diverticulitis of intestine, part unspecified, with perforation and abscess without bleeding; K56.7 Ileus, unspecified; Q21.1 Atrial septal defect; F17.210 Nicotine dependence, cigarettes, uncomplicated; F41.1 Generalized anxiety disorder; R16.0 Hepatomegaly, not elsewhere classified; R74.0 Nonspecific elevation of levels of transaminase and lactic acid dehydrogenase [LDH]; D64.9 Anemia, unspecified; F32.9 Major depressive disorder, single episode, unspecified; Z79.899 Other long term (current) drug therapy
CPT/HCPCS: 10102; 10879; 27000

== ENCOUNTER → 2019-08-11 | Outpatient (CLI) | payer OTHER ==
[~2019-08-11] MED LIST: ABILIFY10 MG PO; LEXAPRO20 MG PO; METRONIDAZOLE500 M4 PO; PERCOCET PO; ROCEPHIN 11 GM/1001 IV; TRAZODONE 150150 M1 PO
[2019-08-11 12:27] VITALS: BP 108/75
--- NOTE | 2019-08-11 12:45 | NUR ---
PT HERE FOR 1ST DAY OUTPT IV ANTIBIOTICS. STATES LEFT HOSPITAL AFTER 2100 LAST EVENING. WAS ABLE TO CHASER TAR HIS OXYCODONE SCRIPT AT [facility] IN [place]. DID NOT YET CHASER TAR METRONIDAZOLE STATING HE THOUGHT HE WAS SUPPOSED TO BE ON A PILL WELL. PHONED HIS PHARMACY ON [address] WHICH HAD THE MED FILLED. INSTRUCTED PT TO PICK THIS UP TODAY AND BEGIN TODAY: METRONIDAZOLE TID. PT ALSO INSTRUCTED TO AVOID ALL ALCOHOL WHILE ON THIS DRUG. PT VERBALIZES UNDERSTANDING. PICC LINE INTACT, GOOD BLOOD RETURN, CEFTRIAXONE INFUSED WITHOUT INCIDENT, NO S/S REACTION. PICC DSG CHANGE DONE AND ESR DRAWN. WILL PLAN ON HAVING PT SEE DR. FARLEY NEXT WEEK ON SAT AND HAVE LABS DONE PRIOR. PT INSTRUCTED TO NOTIFY DOCTOR OR HIS INFUSION NURSE WITH ANY ISSUES. PRESENTLY DENIES N/V, FEVER/CHILLS/SWEATS. ONLY MILD DIARRHEA. EATING OK. PT ALSO INSTRUCTED TO SCHEDULE HIS F/U WITH THE SURGEON, PSYCHIATRIST AND HIS PCP. DISMISSED IN STABLE CONDITION POST INFUSION. SCHEDULED TO RETURN AGAIN TOMORROW MORNING.
== END ==
LOC: OPONC 10:22
DX: K57.80 Diverticulitis of intestine, part unspecified, with perforation and abscess without bleeding (principal)
CPT/HCPCS: 95000

== ENCOUNTER → 2019-08-12 | Outpatient (CLI) | payer SELFPAY ==
[2019-08-12 11:40] VITALS: BP 118/84
--- NOTE | 2019-08-12 12:05 | NUR ---
HERE FOR 2ND DAY OF OUTPATIENT IV THERAPY FOR HIS DIVERTICULITIS AND ABSCESSES. LOOKS GOOD AND REPORTS FEELING WELL, EATING OK, NO PAIN. DENIES N/V/DIARRHEA, FEVER/CHILLS/SWEATS. PICC SITE LOOKS GOOD. TOLERATED INFUSION WITHOUT INCIDENT. REVIEWED PLAN FOR WEEKEND (-SAT IN THE ED) THEN RETURNING HERE ON SATURDAY. DISMISSED IN STABLE CONDITION.
== END ==
LOC: OPONC 08:59
DX: K57.80 Diverticulitis of intestine, part unspecified, with perforation and abscess without bleeding (principal)
CPT/HCPCS: 95000

== ENCOUNTER → 2019-08-13 | Outpatient (CLI) | payer SELFPAY | LOC: OPONC 15:03 | DX: K57.80 Diverticulitis of intestine, part unspecified, with perforation and abscess without bleeding (principal) | CPT/HCPCS: 95000; 95113 ==

== ENCOUNTER → 2019-08-14 | Outpatient (CLI) | payer SELFPAY | LOC: OPONC 15:07 | DX: K57.80 Diverticulitis of intestine, part unspecified, with perforation and abscess without bleeding (principal) | CPT/HCPCS: 95000 ==

== ENCOUNTER → 2019-08-15 | Outpatient (CLI) | payer SELFPAY | LOC: OPONC 10:40 | DX: K57.80 Diverticulitis of intestine, part unspecified, with perforation and abscess without bleeding (principal) | CPT/HCPCS: 95000 ==

== ENCOUNTER → 2019-08-16 | Outpatient (CLI) | payer SELFPAY | LOC: OPONC 14:31 | DX: K57.80 Diverticulitis of intestine, part unspecified, with perforation and abscess without bleeding (principal) | CPT/HCPCS: 95000; 95113 ==

== ENCOUNTER → 2019-08-17 | Outpatient (CLI) | payer SELFPAY ==
[2019-08-17 12:19] VITALS: BP 108/78
--- NOTE | 2019-08-17 12:20 | NUR ---
PT IN FOR INFUSION OF ROCEPHIN ORDERED IV. LUABSLPICC DSG CDI, BRISK BLOOD RETURN, WILL HAVE LABS DRAWN 08/18/19 WITH DSG CHG AND WILL SEE DR FARLEY ON 08/19/19. DENIES ANY ISSUES. N
== END ==
LOC: OPONC 08:42
DX: K57.80 Diverticulitis of intestine, part unspecified, with perforation and abscess without bleeding (principal)
CPT/HCPCS: 95000

== ENCOUNTER → 2019-08-18 | Outpatient (CLI) | payer OTHER ==
[2019-08-18 11:41] LABS: HEMATOCRIT 37.3 % (42.0-52.0); HEMOGLOBIN 12.7 gm/dL (14.0-18.0); MCH 31.5 pg (26.0-34.0); MCV 92.5 fL (80.0-100.0); RBC 4.03 mil/uL (4.50-6.00); RDW 14.6 % (10.5-14.5); WBC 8.1 thou/uL (4.0-11.0)
[2019-08-18 12:04] LABS: ALBUMIN 3.5 g/dL (3.4-5.0); CALCIUM 9.6 mg/dL (8.5-10.1); CREATININE 0.9 mg/dL (0.7-1.3); POTASSIUM 3.9 mmol/L (3.5-5.1); TOTAL BILIRUBIN 0.4 mg/dL (<0.1-1.0); TOTAL PROTEIN 7.1 g/dL (6.4-8.2)
[2019-08-18 12:59] VITALS: BP 109/74
--- NOTE | 2019-08-18 13:06 | NUR ---
IN FOR DAILY CEFTRIAXONE INFUSION. STATED FEELING WELL. DENIED PAIN, N/V, FEVER/CHILLS, DIARRHEA. LEXI LAB FROM PICC LINE WITHOUT DIFFICULTY. TOLERATED INFUSION WITHOUT INCIDENT. PICC DRESSING CHANGED. TO RETURN TOMORROW TO SEE DR. FARLEY AND FOR HIS INFUSION. DISMISSED IN STABLE CONDITION.
== END ==
LOC: OPONC 08:40
PROVIDERS: Specialist
DX: K57.80 Diverticulitis of intestine, part unspecified, with perforation and abscess without bleeding (principal)
CPT/HCPCS: 95000

== ENCOUNTER → 2019-08-19 | Outpatient (CLI) | payer SELFPAY ==
[2019-08-19 11:05] VITALS: BP 122/76
--- NOTE | 2019-08-19 12:21 | NUR ---
DR. FARLEY HERE TO ASSESS THE PATIENT. THE PATIENT STATING HE IS FEELING BETTER BUT CONTINUES TO HAVE CHRONIC FATIQUE. ORDERS FROM DR. FARLEY WERE TO CONTINUE CURRENT TREATMENT OF DAILY INFUSION. NOTE FROM DR. FARLEY WAS GIVEN TO THE PATIENT STATING HE IS CONTINUING UNDER HIS CARE FOR COMPLEX MEDICAL ISSUE. IV ABX INFUSED WITHOUT S/S OF ADVERSE REACTIONS.
== END ==
LOC: OPONC 08:24
DX: K57.80 Diverticulitis of intestine, part unspecified, with perforation and abscess without bleeding (principal)
CPT/HCPCS: 95000

== ENCOUNTER → 2019-08-20 | Outpatient (CLI) | payer OTHER ==
--- NOTE | 2019-08-20 11:30 | NUR ---
HERE FOR DAILY IV CEFTRIAXONE INFUSION. REPORTS DOING WELL. NO CONCERNS NOTED. EATING WELL, NO BOWEL COMPLAINTS, DENIES FEVER/CHILLS. TOLERATED INFUSION WITHOUT INCIDENT. DISMISSED IN STABLE CONDITION. SCHEDULED TO RETURN TOMORROW.
[2019-08-20 11:35] VITALS: BP 113/76
== END ==
LOC: OPONC 10:39 → EDSTATUS 14:16
DX: K57.80 Diverticulitis of intestine, part unspecified, with perforation and abscess without bleeding (principal)
CPT/HCPCS: 95000

== ENCOUNTER → 2019-08-21 | Outpatient (CLI) | payer OTHER ==
[2019-08-21 14:08] VITALS: BP 104/73
--- NOTE | 2019-08-21 14:20 | NUR ---
IN FOR DAILY CEFTRIAXONE INFUSION. STATED FEELING WELL. DENIED N/V, FEVER/CHILLS, DIARRHEA. TOLERATED INFUSION WITHOUT INCIDENT. RECEIVED GOOD BLOOD RETURN FROM PICC LINE AND FLUSHED EASILY. SITE WNL. TO GO TO THE ED FOR WEEKEND INFUSIONS. DISMISSED IN GOOD CONDITION.
== END ==
LOC: OPONC 09:25
DX: K57.80 Diverticulitis of intestine, part unspecified, with perforation and abscess without bleeding (principal)
CPT/HCPCS: 95000

== ENCOUNTER → 2019-08-22 | Outpatient (CLI) | payer OTHER | LOC: OPONC 09:33 | DX: K57.80 Diverticulitis of intestine, part unspecified, with perforation and abscess without bleeding (principal) | CPT/HCPCS: 95000 ==

== ENCOUNTER → 2019-08-23 | Outpatient (CLI) | payer OTHER | LOC: OPONC 09:37 | DX: K57.80 Diverticulitis of intestine, part unspecified, with perforation and abscess without bleeding (principal) | CPT/HCPCS: 95000 ==

== ENCOUNTER → 2019-08-24 | Outpatient (CLI) | payer OTHER ==
[2019-08-24 11:52] VITALS: BP 105/74
--- NOTE | 2019-08-24 11:57 | NUR ---
IN FOR DAILY CEFTRIAXONE INFUSION. STATED NOT FEELING WELL TODAY. REPORTED FEELING ACHY ALL OVER, MILD LOWER ABD PAIN WITH BLOATING, 2 LOOSE STOOLS DAILY. DENIED FEVER/CHILLS. TOLERATED INFUSION WITHOUT INCIDENT. PICC SITE WNL WITH GOOD BLOOD RETURN. TO RETURN TOMORROW FOR NEXT INFUSION. DISMISSED IN STABLE CONDITION.
== END ==
LOC: OPONC 09:06
DX: K57.80 Diverticulitis of intestine, part unspecified, with perforation and abscess without bleeding (principal)
CPT/HCPCS: 95000

== ENCOUNTER → 2019-08-25 | Outpatient (CLI) | payer OTHER ==
[2019-08-25 11:29] VITALS: BP 117/42
[2019-08-25 11:40] LABS: HEMATOCRIT 40.3 % (42.0-52.0); HEMOGLOBIN 13.4 gm/dL (14.0-18.0); MCH 30.8 pg (26.0-34.0); MCHC 33.2 g/dL (28.0-37.0); MCV 92.8 fL (80.0-100.0); RBC 4.34 mil/uL (4.50-6.00); RDW 14.8 % (10.5-14.5); WBC 8.2 thou/uL (4.0-11.0)
--- NOTE | 2019-08-25 11:56 | NUR ---
PT IN FOR DAILY IV ABX INFUSION. JENNIFER WELL. LABS DRAWN, MEDS INFUSED, WKLY DSG CHANGE DONE FOR PICC. PT TO SEE DR FARLEY 08/26/19
[2019-08-25 12:16] LABS: ALBUMIN 3.8 g/dL (3.4-5.0); CALCIUM 9.5 mg/dL (8.5-10.1); CREATININE 0.8 mg/dL (0.7-1.3); POTASSIUM 3.8 mmol/L (3.5-5.1); TOTAL PROTEIN 7.3 g/dL (6.4-8.2)
== END ==
LOC: OPONC 10:43
PROVIDERS: Specialist
DX: K57.80 Diverticulitis of intestine, part unspecified, with perforation and abscess without bleeding (principal)
CPT/HCPCS: 95000

== ENCOUNTER → 2019-08-26 | Outpatient (CLI) | payer OTHER ==
[2019-08-26 12:05] VITALS: BP 105/71
--- NOTE | 2019-08-26 12:08 | NUR ---
IN FOR DAILY CEFTRIAXONE INFUSION FOR PERFORATED DIVERTICULI WITH LIVER ABSCESSES. STATED NOT FEELING WELL. HAVING GENERALIZED ACHING WITH DIARRHEA, AT LEAST 3 STOOLS DAILY AND 2 STOOLS LAST NIGHT. RATED ABD PAIN #4. MILD NAUSEA NOTED. DENIED FEVER/CHILLS. TOLERATED INFUSION WITHOUT INCIDENT. DR. FARLEY VISITED AND INSTRUCTED PATIENT TO TAKE SOME IMMODIUM AND PEPCID TO HELP WITH THIS. PICC LINE HAS GOOD BLOOD RETURN AND SITE WNL. TO CONTINUE SAME TREATMENT FOR ANOTHER WEEK. DISMISSED IN STABLE CONDITION.
== END ==
LOC: OPONC 07:56
DX: K57.80 Diverticulitis of intestine, part unspecified, with perforation and abscess without bleeding (principal)
CPT/HCPCS: 95000

== ENCOUNTER → 2019-08-27 | Outpatient (CLI) | payer OTHER ==
[2019-08-27 11:16] VITALS: BP 104/74
--- NOTE | 2019-08-27 13:51 | NUR ---
IN FOR DAILY CEFTRIAXONE INFUSION. PATIENT STATED FEELING MUCH BETTER TODAY. TOOK IMMODIUM FOR DIARRHEA AND WAS HELPFUL. DENIED PAIN, N/V, FEVER/CHILLS. PATIENT STATED HE SLEPT FOR 13 HOURS AND HE THINKS HE WAS JUST OVER WORKED AND TIRED. TOLERATED INFUSION WITHOUT INCIDENT. PICC SITE WNL WITH GOOD BLOOD RETURN. TO RETURN TOMORROW FOR THE SAME. DISMISSED IN STABLE CONDITION.
== END ==
LOC: OPONC 10:15
DX: K57.80 Diverticulitis of intestine, part unspecified, with perforation and abscess without bleeding (principal)
CPT/HCPCS: 95000

== ENCOUNTER → 2019-08-28 | Outpatient (CLI) | payer OTHER ==
[2019-08-28 14:35] VITALS: BP 106/67
--- NOTE | 2019-08-28 14:39 | NUR ---
IN FOR DAILY CEFTRIAXONE INFUSION. STATED FEELING WELL. DENIED PAIN, N/V, FEVER, CHILLS, DIARRHEA. TOLERATED INFUSION WITHOUT INCIDENT. RECEIVED GOOD BLOOD RETURN FROM PICC LINE AND FLUSHED EASILY. SITE WNL. DISCUSSED WITH PATIENT TO GO TO ED FOR WEEKEND INFUSIONS. STATED UNDERSTANDING. DISMISSED IN STABLE CONDITION.
== END ==
LOC: OPONC 09:03
DX: K57.80 Diverticulitis of intestine, part unspecified, with perforation and abscess without bleeding (principal)
CPT/HCPCS: 95000

== ENCOUNTER → 2019-08-29 | Outpatient (CLI) | payer OTHER | LOC: OPONC 14:05 | DX: K57.80 Diverticulitis of intestine, part unspecified, with perforation and abscess without bleeding (principal) | CPT/HCPCS: 95000 ==

== ENCOUNTER → 2019-08-31 | Outpatient (CLI) | payer OTHER ==
[2019-08-31 11:20] VITALS: BP 118/84
--- NOTE | 2019-08-31 11:46 | NUR ---
IN FOR DAILY CEFTRIAXONE INFUSION FOR PERFORATED DIVERTICULI WITH MULTIPLE LIVER ABSCESSES. PATIENT STATED FEELING WELL. DENIED N/V, FEVER/CHILLS, PAIN. STATED HAD A LITTLE DIARRHEA YESTERDAY AFTER EATING SOME CHILI. TOOK IMMODIUM AND DIARRHEA RESOLVED. UNABLE TO GET BLOOD RETURN FROM PICC LINE TODAY, HOWEVER FLUSHED EASILY. TOLERATED INFUSION WITHOUT INCIDENT. TO RETURN TOMORROW FOR THE SAME. DISMISSED IN GOOD CONDITION.
== END ==
LOC: OPONC 10:24
DX: K57.80 Diverticulitis of intestine, part unspecified, with perforation and abscess without bleeding (principal)
CPT/HCPCS: 95000

== ENCOUNTER → 2019-09-01 | Outpatient (CLI) | payer OTHER ==
[2019-09-01 12:00] VITALS: BP 109/79
[2019-09-01 12:41] LABS: HEMATOCRIT 44.7 % (42.0-52.0); HEMOGLOBIN 14.7 gm/dL (14.0-18.0); MCH 30.5 pg (26.0-34.0); MCV 92.4 fL (80.0-100.0); RBC 4.83 mil/uL (4.50-6.00); RDW 14.9 % (10.5-14.5); WBC 9.4 thou/uL (4.0-11.0)
--- NOTE | 2019-09-01 12:41 | NUR ---
PATIENT HERE FOR IV INFUSION. LABS DRAWN PRIOR TO INFUSION. DRESSING CHANGE DELAYED UNTIL TOMORROWS VISIT PENDING DR. FARLEY ROUNDING TO DETERMINE IF HE WILL CONTINUE TREATMENT OR WILL BE FINISHED WITH INFUSION AT THAT TIME. PATIENT AMBULATED TO ULTRASOUND FOR F/U LIVER ABCESS ULTRASOUND.
[2019-09-01 13:02] LABS: ALBUMIN 3.9 g/dL (3.4-5.0); CALCIUM 9.3 mg/dL (8.5-10.1); CREATININE 0.7 mg/dL (0.7-1.3); POTASSIUM 4.1 mmol/L (3.5-5.1); TOTAL PROTEIN 7.3 g/dL (6.4-8.2)
== END ==
LOC: OPONC 08:40 → ULTRA 08:40 → OPONC 14:42
PROVIDERS: Specialist
DX: K57.80 Diverticulitis of intestine, part unspecified, with perforation and abscess without bleeding (principal); K75.0 Abscess of liver; R16.1 Splenomegaly, not elsewhere classified
CPT/HCPCS: 95000

== ENCOUNTER → 2019-09-02 | Outpatient (CLI) | payer OTHER ==
[2019-09-02 11:08] VITALS: BP 105/68
--- NOTE | 2019-09-02 14:23 | NUR ---
PT IN TODAY FOR FINAL ROCEPHIN INFUSION. DR FARLEY IN TO VISIT AND WROTE ORDERS TO DC PICC, DC ROCEPHIN, PLACE PT ON PO CEFDINIR 300MG BID X [address] [facility] ON PT CHART. MESSAGE LEFT WITH ANSWERING SERVICE. PICC DC'D INTACT. SCHEDULED PT FOR RETURN APPT HERE AT OP INFUSION FOR SEP 17 AT 10AM, DR FARLEY WANTS CBC, CMP AND SED RATE DRAWN.
--- NOTE | 2019-09-02 15:27 | NUR ---
CALLED [facility] BACK TO VERIFY THEY RECEIVED THE NEW SCRIPT. SHARE HOLDER DID INDEED GET THE ORDER AND THE MEDS WILL BE READY THIS EVENING. COMMUNICATED THIS TO THE PT.
== END ==
LOC: OPONC 14:43
DX: K57.80 Diverticulitis of intestine, part unspecified, with perforation and abscess without bleeding (principal); K75.0 Abscess of liver
CPT/HCPCS: 95000

== ENCOUNTER → 2019-09-17 | Outpatient (CLI) | payer OTHER ==
[~2019-09-17] MED LIST changes: +CEFDINIR300 MG PO
[2019-09-17 10:43] LABS: HEMATOCRIT 44.6 % (42.0-52.0); HEMOGLOBIN 15.2 gm/dL (14.0-18.0); MCH 31.1 pg (26.0-34.0); MCHC 34.1 g/dL (28.0-37.0); MCV 91.3 fL (80.0-100.0); RBC 4.88 mil/uL (4.50-6.00); RDW 14.3 % (10.5-14.5); WBC 6.2 thou/uL (4.0-11.0)
[2019-09-17 10:58] LABS: ALBUMIN 3.7 g/dL (3.4-5.0); CALCIUM 9.4 mg/dL (8.5-10.1); CREATININE 0.8 mg/dL (0.7-1.3); POTASSIUM 3.9 mmol/L (3.5-5.1); TOTAL BILIRUBIN 0.7 mg/dL (<0.1-1.0); TOTAL PROTEIN 6.8 g/dL (6.4-8.2)
[2019-09-17 11:11] VITALS: BP 113/80
--- NOTE | 2019-09-17 15:55 | NUR ---
IN FOR CLINIC VISIT WITH DR. FARLEY FOR FOLLOW UP OF PERFORATED DIVERTICULITIS AND LIVER ABSCESSES. PATIENT STATED DOING WELL. DENIED FEVER, CHILLS, NAUSEA, VOMITING, PAIN. STATED HAS A GOOD APPETITE. HAVING APPROXIMATELY 1 LOOSE STOOL DAILY. HAS BEEN TAKING CEFDINIR FOR THE PAST [address] FARLEY VISITED. NEW ORDERS WRITTEN. SCHEDULED US OF ABD FOR NEXT SATURDAY AT 10 AM. INSTRUCTED TO REMAIN NPO FOR US. PRESCRIPTIONS OFR CEFDINIR AND METRONIDAZOLE SENT TO PATIENT'S PHARMACY VIA FAX BY DR. FARLEY. INSTRUCTED PATIENT TO CONTINUE THESE MEDICATIONS. PATIENT TO RETURN IN 2 WEEKS FOR ANOTHER F/U VISIT. DISMISSED IN GOOD CONDITION.
== END ==
LOC: OPONC 09:32
PROVIDERS: Specialist
DX: K57.90 Diverticulosis of intestine, part unspecified, without perforation or abscess without bleeding (principal); K75.0 Abscess of liver
CPT/HCPCS: 91017